=== PATIENT | male | born 1945 | race Caucasian/White ===

== ENCOUNTER 2018-05-26 10:41 | Outpatient (REF) | payer MEDICARE, BC, SELFPAY ==
[2018-05-26 21:34] LABS: Anion Gap 5.8 mmol/L (3-11); BUN 29 mg/dL (7-18); CO2 29.2 mmol/L (21.0-32.0); Chloride 102 mmol/L (98-107); Estimated GFR 42.46 (mL/min/1.73m2); Glucose 84 mg/dL (70-100); Potassium 4.9 mmol/L (3.5-5.1); Sodium 137 mmol/L (136-145)
[2018-05-26 21:50] LABS: COMMENT (LAB VIEW ONLY) 115.97 mg/dL; Microalb ug/mg Crea 33.7 ug/mg Cr
== END 2018-05-26 11:01 ==
LOC: NCHCN 10:41
PROVIDERS: PCP Internal Medicine; Visit Provider Internal Medicine
DX: F32.9 Major depressive disorder, single episode, unspecified (principal); F17.200 Nicotine dependence, unspecified, uncomplicated; N18.3 Chronic kidney disease, stage 3 (moderate); J44.9 Chronic obstructive pulmonary disease, unspecified
CPT/HCPCS: 80048; 82043; 82570

== ENCOUNTER 2019-07-17 15:51 | Outpatient (REF) | payer MEDICARE, BC, SELFPAY ==
[2019-07-17 21:38] LABS: Anion Gap 8.8 mmol/L (3-11); BUN 30 mg/dL (7-18); CO2 27.2 mmol/L (21.0-32.0); CREATININE 1.68 mg/dL (0.70-1.30); Calcium 8.2 mg/dL (8.5-10.1); Chloride 108 mmol/L (98-107); Estimated GFR 39.92 (mL/min/1.73m2); Glucose 95 mg/dL (74-106); Potassium 4.6 mmol/L (3.5-5.1); Sodium 144 mmol/L (136-145)
[2019-07-17 21:46] LABS: Abs Immature Grans 0.01 k/cumm (0.0-0.09); Absolute Basophil Count 0.01 k/cumm (0.0-0.2); Absolute Lymphocyte Count 1.23 k/cumm (1.2-3.4); Absolute Monocyte Count 0.88 k/cumm (0.11-0.7); Absolute Neutrophil Count 4.01 k/cumm (1.2-6.7); Basophils % 0.1; Eosinophils % 10.2; HCT 37.6 % (40.0-50.0); Immature Grans % 0.1 %; Mean Corp. HGB Concentration 31.9 g/dL (32.0-36.0); Mean Corpuscular Hemoglobin 32.3 pg (27.0-33.0); Mean Corpuscular Volume 101.3 fL (80-95); Mean Platelet Volume 11.8 fL (8.0-11.0); Monocytes % 12.9; Neutrophils % 58.7; Platelet Count 197 x1000/uL (130-400); RBC 3.71 m/cumm (4.50-6.00); RBC Distribution Width 12.9 % (11.8-14.1); White Blood Cell Count 6.84 k/cumm (4.4-10.8)
== END 2019-07-17 16:11 ==
LOC: NCHCN 15:51
PROVIDERS: PCP Internal Medicine; Visit Provider Internal Medicine
DX: N18.3 Chronic kidney disease, stage 3 (moderate) (principal); J44.9 Chronic obstructive pulmonary disease, unspecified
CPT/HCPCS: 80048; 85025

== ENCOUNTER 2019-07-24 09:48 | Outpatient (REF) | payer MEDICARE, BC, SELFPAY ==
[2019-07-24 23:09] LABS: Vitamin B12 562 pg/mL (193-986)
== END 2019-07-24 10:08 ==
LOC: NCHCN 09:48
PROVIDERS: PCP Internal Medicine; Visit Provider Internal Medicine
DX: D64.9 Anemia, unspecified (principal)
CPT/HCPCS: 82607

== ENCOUNTER 2023-11-23 22:44 | Outpatient (REF) | payer MEDICARE, BC, SELFPAY ==
[2023-11-23 21:30] LABS: HCT 41.9 % (40.0-50.0); HGB 13.9 g/dL (13.5-17.5); MCH 34.5 pg (27.0-33.0); MCHC 33.2 % (32.0-36.0); MCV 104 fL (80-95); Platelet Count 193 10^3/uL (130-400); RBC 4.03 10^6/uL (4.36-5.78); RDW 14.2 % (11.8-14.1); RDW-SD 53.4 fL; WBC 7.87 10^3/uL (4.4-10.8)
[2023-11-23 21:41] LABS: Anion Gap 7.2 mmol/L (3-11); BUN 27 mg/dL (7-18); CO2 33.8 mmol/L (21.0-32.0); Calcium 9.3 mg/dL (8.5-10.1); Chloride 103 mmol/L (98-107); Estimated GFR 33.12 (mL/min/1.73m2); Glucose 110 mg/dL (74-106); Potassium 3.7 mmol/L (3.5-5.1); Sodium 144 mmol/L (136-145)
== END 2023-11-23 22:45 | disposition home or self-care (01) ==
LOC: NCHCN 22:44
PROVIDERS: PCP Internal Medicine; Visit Provider Nurse Practitioner Family
DX: N18.4 Chronic kidney disease, stage 4 (severe) (principal); D64.9 Anemia, unspecified
CPT/HCPCS: 80048; 85027

== ENCOUNTER → 2023-12-27 14:08 | Outpatient (BNVA) | payer MEDICARE, BC, SELFPAY | PROVIDERS: PCP Internal Medicine; Referring Provider Internal Medicine; Visit Provider Internal Medicine Critical Care Medicine | DX: J44.9 Chronic obstructive pulmonary disease, unspecified (principal); G47.33 Obstructive sleep apnea (adult) (pediatric); F17.210 Nicotine dependence, cigarettes, uncomplicated | CPT/HCPCS: 99205 ==

== ENCOUNTER 2024-01-07 01:57 | Outpatient (CLI) | payer MEDICARE, BC, SELFPAY ==
[2024-01-07] MEDS: Levalbuterol HFA 15 GM INH 4 PUFF IH (14:18)
[2024-01-07] MEDS: Inhaler, Assist Device 1 EACH MC (14:19)
--- NOTE | 2024-01-12 09:32 | W.PFT ---
Date of service: 01/07/24 Time of Service: 13:00 Pulmonary Function Test Result Requesting Provider Eloina Pham Indications: COPD Impression Spirometry shows a very decreased FEV1/FVC at 33%. A very severe decrease in FEV1 at 20%. Severe decrease in FVC 44%. Significant reversibility after bronchodilator going up to 24%. No lung volumes were performed. Very severe decrease in diffusion at 26%. Flow-volume curve shows obstruction. Impression Very severe obstructive ventilatory defect with significant reversibility after bronchodilator and it has very severe decrease in diffusion which could be consistent with COPD Clinical Correlation therefore is recommended.
--- NOTE | 2024-01-12 12:42 | W.6MWT ---
Date of service: 01/07/24 Time of Service: 12:00 6 Minute Walk Test Note: 6-minute walking test. Baseline O2 saturations on room air 92%. Patient walked 60.9m and demonstrated desaturation down to 88% requiring 3 L O2 pulsed to maintain O2 saturation of 93%
== END 2024-01-07 01:58 | disposition home or self-care (01) ==
LOC: RT 01:57
PROVIDERS: PCP Internal Medicine; Visit Provider Internal Medicine Critical Care Medicine
DX: J44.9 Chronic obstructive pulmonary disease, unspecified (principal)
CPT/HCPCS: 00123; 94060; 94618; 94729

== ENCOUNTER → 2024-01-19 10:26 | Outpatient (BNVA) | payer MEDICARE, BC, SELFPAY | PROVIDERS: PCP Internal Medicine; Referring Provider Internal Medicine; Visit Provider Internal Medicine Critical Care Medicine | DX: J44.9 Chronic obstructive pulmonary disease, unspecified (principal); G47.33 Obstructive sleep apnea (adult) (pediatric); F17.219 Nicotine dependence, cigarettes, with unspecified nicotine-induced disorders | CPT/HCPCS: 99214 ==

== ENCOUNTER 2024-02-28 16:03 | Outpatient (REF) | payer MEDICARE, BC, SELFPAY ==
[2024-02-28 22:04] LABS: HGB 14.4 g/dL (13.5-17.5); MCV 106 fL (80-95); MPV 11.5 fL (8.0-11.0); Platelet Count 153 10^3/uL (130-400); RBC 4.23 10^6/uL (4.36-5.78); RDW 12.9 % (11.8-14.1); RDW-SD 50.6 fL; WBC 10.18 10^3/uL (4.4-10.8)
[2024-02-28 22:13] LABS: Anion Gap 6.4 mmol/L (3-11); BUN 29 mg/dL (7-18); CO2 31.6 mmol/L (21.0-32.0); CREATININE 2.2 mg/dL (0.70-1.30); Calcium 8.9 mg/dL (8.5-10.1); Chloride 106 mmol/L (98-107); Estimated GFR 29.54 (mL/min/1.73m2); Glucose 93 mg/dL (74-106); Potassium 3.8 mmol/L (3.5-5.1); Sodium 144 mmol/L (136-145); Uric Acid 5.5 mg/dL (3.5-7.2)
== END 2024-02-28 16:04 | disposition home or self-care (01) ==
LOC: NCHCN 16:03
PROVIDERS: PCP Internal Medicine; Visit Provider Internal Medicine
DX: D64.9 Anemia, unspecified (principal); J44.9 Chronic obstructive pulmonary disease, unspecified
CPT/HCPCS: 80048; 85027; 84550

== ENCOUNTER → 2024-06-06 14:33 | Outpatient (BNVA) | payer MEDICARE, BC, SELFPAY | PROVIDERS: PCP Internal Medicine; Referring Provider Internal Medicine; Visit Provider Physician Assistant Surgical | DX: J44.9 Chronic obstructive pulmonary disease, unspecified (principal); G47.33 Obstructive sleep apnea (adult) (pediatric); J96.11 Chronic respiratory failure with hypoxia; J96.12 Chronic respiratory failure with hypercapnia; F17.219 Nicotine dependence, cigarettes, with unspecified nicotine-induced disorders | CPT/HCPCS: 99214 ==

== ENCOUNTER 2024-07-03 16:47 | Outpatient (REF) | payer MEDICARE, BC, SELFPAY ==
[2024-07-03 21:28] LABS: Anion Gap 4.4 mmol/L (3-11); BUN 38 mg/dL (7-18); CO2 33.6 mmol/L (21.0-32.0); Calcium 9.5 mg/dL (8.5-10.1); Chloride 105 mmol/L (98-107); Estimated GFR 32.91 (mL/min/1.73m2); Glucose 133 mg/dL (74-106); Sodium 143 mmol/L (136-145)
== END 2024-07-03 16:48 | disposition home or self-care (01) ==
LOC: NCHCN 16:47
PROVIDERS: PCP Internal Medicine; Visit Provider Internal Medicine
DX: N18.4 Chronic kidney disease, stage 4 (severe) (principal)
CPT/HCPCS: 80048

== ENCOUNTER → 2024-10-12 09:14 | Outpatient (BNVA) | payer MEDICARE, BC, SELFPAY | PROVIDERS: PCP Internal Medicine; Referring Provider Internal Medicine; Visit Provider Physician Assistant Surgical | DX: J44.9 Chronic obstructive pulmonary disease, unspecified (principal); G47.33 Obstructive sleep apnea (adult) (pediatric); F17.219 Nicotine dependence, cigarettes, with unspecified nicotine-induced disorders; J96.11 Chronic respiratory failure with hypoxia; J96.12 Chronic respiratory failure with hypercapnia | CPT/HCPCS: 99214 ==

== ENCOUNTER 2024-12-28 21:22 | Outpatient (REF) | payer MEDICARE, BC, SELFPAY ==
[2024-12-28 21:14] LABS: HCT 36.1 % (40.0-50.0); HGB 11.9 g/dL (13.5-17.5); MCH 33.4 pg (27.0-33.0); MCHC 33.0 % (32.0-36.0); MCV 101 fL (80-95); MPV 11.4 fL (8.0-11.0); Platelet Count 180 10^3/uL (130-400); RBC 3.56 10^6/uL (4.36-5.78); RDW 14.3 % (11.8-14.1); RDW-SD 53.9 fL; WBC 8.83 10^3/uL (4.4-10.8)
[2024-12-28 21:49] LABS: Anion Gap 1.9 mmol/L (3-11); BUN 32 mg/dL (7-18); CO2 34.1 mmol/L (21.0-32.0); Calcium 8.8 mg/dL (8.5-10.1); Chloride 105 mmol/L (98-107); Estimated GFR 37.35 (mL/min/1.73m2); Glucose 95 mg/dL (74-106); Potassium 4.0 mmol/L (3.5-5.1); Sodium 141 mmol/L (136-145); Vitamin B12 487 pg/mL (193-986)
== END 2024-12-28 21:23 | disposition home or self-care (01) ==
LOC: NCHCN 21:22
PROVIDERS: PCP Internal Medicine; Visit Provider Internal Medicine
DX: N18.4 Chronic kidney disease, stage 4 (severe) (principal)
CPT/HCPCS: 80048; 85027; 82607

== ENCOUNTER → 2025-01-18 09:17 | Outpatient (BNVA) | payer MEDICARE, BC, SELFPAY | PROVIDERS: PCP Internal Medicine; Referring Provider Internal Medicine; Visit Provider Physician Assistant Surgical | DX: J44.9 Chronic obstructive pulmonary disease, unspecified (principal); G47.33 Obstructive sleep apnea (adult) (pediatric); F17.210 Nicotine dependence, cigarettes, uncomplicated; J96.11 Chronic respiratory failure with hypoxia; J96.12 Chronic respiratory failure with hypercapnia | CPT/HCPCS: 99214; 99406 ==

== ENCOUNTER 2025-03-29 10:02 | Outpatient (REF) | payer MEDICARE, BC, SELFPAY ==
[2025-03-29 15:23] LABS: Anion Gap 9.7 mmol/L (3-11); BUN 48 mg/dL (7-18); CO2 35.3 mmol/L (21.0-32.0); Calcium 9.1 mg/dL (8.5-10.1); Chloride 95 mmol/L (98-107); Glucose 97 mg/dL (74-106); Potassium 3.4 mmol/L (3.5-5.1); Sodium 140 mmol/L (136-145)
== END 2025-03-29 10:03 | disposition home or self-care (01) ==
LOC: NCHCN 10:02
PROVIDERS: PCP Internal Medicine; Visit Provider Internal Medicine
DX: N18.4 Chronic kidney disease, stage 4 (severe) (principal)
CPT/HCPCS: 80048